=== PATIENT | female | born 1935 | race Caucasian/White ===

== ENCOUNTER → 2023-12-17 08:17 | Outpatient (REF) | payer MEDICARE, SELFPAY ==
[2023-12-17 09:02] LABS: % Basophils 0.2 % (0-2); % Eosinophils 7.8 % (0-6); % Immature Granulocytes 0.7 % (0-0.5); % Lymphocytes 31.3 % (20.5-51.1); % Monocytes 7.1 % (1.7-9.3); % Neutrophils 52.9 % (42.2-75.2); Absolute Eosinophils 0.5 10^3/uL (0-0.7); Absolute Lymphocytes 1.9 10^3/uL (1.2-3.4); Absolute Monocytes 0.4 10^3/uL (0.1-0.6); Absolute Neutrophils 3.2 10^3/uL (1.4-6.5); Hematocrit 30.7 % (37.0-47.0); Hemoglobin 10.7 g/dL (12.0-16.0); Mean Corp Hgb Conc. 34.9 g/dL (33.0-37.0); Mean Corpuscular Hgb 31.5 pg (27.0-31.0); Mean Corpuscular Volume 90.3 fL (81.0-99.0); Mean Platelet Volume 9.7 fL (7.4-10.4); Nucleated Red Blood Cells % 0 %; Platelet Count 220 10^3/uL (130-400); Red Cell Dist. Width 15.3 % (11.5-14.5)
[2023-12-17 09:48] LABS: ALT (SGPT) 17 U/L (0-35); AST (SGOT) 22 U/L (14-36); Alkaline Phosphatase 75 U/L (38-126); Blood Urea Nitrogen 24 mg/dl (7-17); Calcium 9.2 mg/dl (8.4-10.2); Carbon Dioxide 23 mmol/L (22-30); Chloride 101 mmol/L (98-107); Glucose 106 mg/dl (70-99); HDL Cholesterol 60 mg/dl; LDL Cholesterol, Calculated 94 mg/dl; Potassium 4.7 mmol/L (3.5-5.1); Sodium 132 mmol/L (135-145); Total Bilirubin 0.5 mg/dl (0.2-1.3); Total Cholesterol 169 mg/dl (50-199); Total Protein 6.7 g/dl (6.3-8.2); Triglyceride 76 mg/dl (10-149); Very Low Density Lipoprotein 15 mg/dl (0-30); eGFR 53.85
[2023-12-17 10:01] LABS: Vitamin D, 25-OH*** 30.5 ng/mL (30-80)
[2023-12-17 12:23] LABS: Glycohemoglobin (HgbA1c) 5.6 % (4.0-5.6)
== END ==
LOC: REG 08:17
PROVIDERS: ATTENDING PHYSICIAN Internal Medicine
DX: I10 Essential (primary) hypertension (principal); E78.5 Hyperlipidemia, unspecified; R73.03 Prediabetes; E55.9 Vitamin D deficiency, unspecified
CPT/HCPCS: 36415; 80053; 80061; 82306; 83036; 85025

== ENCOUNTER → 2024-01-24 08:21 | Outpatient (REF) | payer MEDICARE, SELFPAY ==
[2024-01-24 09:07] LABS: % Basophils 0.3 % (0-2); % Eosinophils 4.8 % (0-6); % Immature Granulocytes 0.9 % (0-0.5); % Lymphocytes 39.8 % (20.5-51.1); % Monocytes 11.1 % (1.7-9.3); % Neutrophils 43.1 % (42.2-75.2); Absolute Eosinophils 0.3 10^3/uL (0-0.7); Absolute Immature Granulocytes 0.1 10^3/uL (0-0.05); Absolute Lymphocytes 2.3 10^3/uL (1.2-3.4); Absolute Monocytes 0.7 10^3/uL (0.1-0.6); Absolute Neutrophils 2.5 10^3/uL (1.4-6.5); Hematocrit 33.1 % (37.0-47.0); Hemoglobin 11.9 g/dL (12.0-16.0); Mean Corpuscular Hgb 32.2 pg (27.0-31.0); Mean Corpuscular Volume 89.5 fL (81.0-99.0); Mean Platelet Volume 9.7 fL (7.4-10.4); Nucleated Red Blood Cells % 0 %; Platelet Count 214 10^3/uL (130-400); Red Cell Dist. Width 15.1 % (11.5-14.5); White Blood Cell Count 5.9 10^3/uL (4.8-10.8)
[2024-01-24 09:47] LABS: Iron 69 ug/dl (37-170)
[2024-01-24 09:56] LABS: Percent Saturation 26 % (20-50); Total Iron Binding Capacity 264 ug/dl (265-497)
[2024-01-24 10:53] LABS: Folate 13.1 ng/ml (2.76-20); Vitamin B12 325 pg/ml (239-931)
== END ==
LOC: REG 08:21
PROVIDERS: ATTENDING PHYSICIAN Internal Medicine
DX: D64.9 Anemia, unspecified (principal)
CPT/HCPCS: 36415; 82607; 82728; 82746; 83540; 83550; 85025

== ENCOUNTER 2024-05-01 13:45 | Emergency (ER) | payer MEDICARE, SELFPAY ==
[2024-05-01] VITALS (19 sets, daily range): BP systolic 104–154; BP diastolic 56–91; BMI 28.5
[2024-05-01 14:19] LABS: % Basophils 0.3 % (0-2); % Eosinophils 3.4 % (0-6); % Immature Granulocytes 0.7 % (0-0.5); % Lymphocytes 31.7 % (20.5-51.1); % Monocytes 6.6 % (1.7-9.3); % Neutrophils 57.3 % (42.2-75.2); Absolute Eosinophils 0.3 10^3/uL (0-0.7); Absolute Immature Granulocytes 0.1 10^3/uL (0-0.05); Absolute Lymphocytes 2.4 10^3/uL (1.2-3.4); Absolute Monocytes 0.5 10^3/uL (0.1-0.6); Absolute Neutrophils 4.3 10^3/uL (1.4-6.5); Hematocrit 34.8 % (37.0-47.0); Hemoglobin 12.5 g/dL (12.0-16.0); Mean Corp Hgb Conc. 35.9 g/dL (33.0-37.0); Mean Corpuscular Hgb 32.5 pg (27.0-31.0); Mean Corpuscular Volume 90.4 fL (81.0-99.0); Nucleated Red Blood Cells % 0 %; Platelet Count 205 10^3/uL (130-400); Red Blood Cell Count 3.85 10^6/uL (4.20-5.40); Red Cell Dist. Width 15.9 % (11.5-14.5); White Blood Cell Count 7.6 10^3/uL (4.8-10.8)
[2024-05-01 14:35] LABS: APTT 32.2 Sec (23.4-35.0)
[2024-05-01 14:37] LABS: ALT (SGPT) 17 U/L (0-35); AST (SGOT) 24 U/L (14-36); Albumin 4.3 g/dl (3.5-5.0); Alkaline Phosphatase 72 U/L (38-126); Blood Urea Nitrogen 30 mg/dl (7-17); Calcium 9.5 mg/dl (8.4-10.2); Carbon Dioxide 20 mmol/L (22-30); Chloride 102 mmol/L (98-107); Glucose 165 mg/dl (70-99); Potassium 4.3 mmol/L (3.5-5.1); Sodium 133 mmol/L (135-145); Total Bilirubin 0.6 mg/dl (0.2-1.3); Total Protein 6.8 g/dl (6.3-8.2); eGFR 48.03
--- NOTE | 2024-05-01 16:18 | ED.GENMED ---
History of Present Illness
<Josie Damon NP - Last Filed: 05/01/24 23:30>
General
Chief Complaint: Abnormal Lab Value
Source: patient
Exam Limitations: none
Time Seen by Provider: 05/01/24 15:34
Nursing documentation reviewed up to this point in time: agreed with
History of Present Illness
History of Present Illness:
Patient to ED with complaint of rapid heartrate. States she was exercising on wednesday when she noticed HR elevation. Denies any CP/pressure. Report [place]. Called Dr. Segovia this AM and was advised to come to ED. Brought to ED by son for eval. PMH
afib - reports cardioversion by Dr. Segovia 1 year ago. On eliquis. Reports compliance with medications.
Past History
<Josie Damon NP - Last Filed: 05/01/24 23:30>
Past History
ED Past Medical History: Cancer (Breast CA), GERD, HTN and Other (Neuropathy)
ED Past Surgical History: Other (Breast lumpectomy Left)
Social History
Tobacco: Non-smoker
Alcohol: None
Drug: None
Personal:
Living: with family
Review of Systems
<Josie Damon NP - Last Filed: 05/01/24 23:30>
Review of Systems
Allergies reviewed?: Yes
All Other Systems: ROS reviewed and negative except as documented in HPI and ROS
Constitutional: Reports no symptoms
EENT: Reports no symptoms
Respiratory: Reports other (PARIS)
Cardiac: Reports other (rapid heart rate)
ABD/GI: Reports no symptoms
Musculoskeletal: Reports no symptoms
Skin: Reports no symptoms
Neurological: Reports no symptoms
Psychiatric: Reports no symptoms
Phy Exam
<Josie Damon NP - Last Filed: 05/01/24 23:30>
General Physical Exam
General Presentation: well appearing and mild distress
General age: appears stated age
General Skin: warm and dry
General Habitus: normal
General Mental: alert
Cardiovascular Exam
Cardiovascular Exam: no edema and tachycardia
Pulmonary Exam
Pulmonary Exam: lungs clear and no respiratory distress
Gastrointestinal Exam
Gastrointestinal Exam: normal bowel sounds and non tender
Musculoskeletal Exam
Musculoskeletal Exam: full ROM and neuro vasc intact
Skin Exam
Skin Exam: normal color, warm/dry and no rash
Psychiatric Exam
Psychiatric Exam: normal mood/affect
Course
<Josie Damon NP - Last Filed: 05/01/24 23:30>
Orders/Labs/Results
Orders:
Orders
05/01/24 13:51
Electrocardiogram (*1) Urgent
Reason for Study: Tachycardia
EKG- Treatment ONCE
05/01/24 13:58
Complete Blood Count/With Diff Urgent
Comprehensive Metabolic Panel Urgent
PTT Urgent
05/01/24 15:43
Cardiac Monitoring- Treatment ONCE
05/01/24 16:34
D-Dimer Urgent
05/01/24 16:42
Propofol [Diprivan] 20 ml .ROUTE .STK-MED
05/01/24 17:58
ASA Classification Routine
Propofol [Diprivan] 60 mg IV NOW STA
05/01/24 18:38
Electrocardiogram (*1) Urgent
Reason for Study: Chest Pain
EKG- Treatment ONCE
Abnormal Lab Results
05/01/24
13:58
RBC 3.85 L 10^6/uL
(4.20-5.40)
Hct 34.8 L %
(37.0-47.0)
MCH 32.5 H pg
(27.0-31.0)
RDW 15.9 H %
(11.5-14.5)
Abs Immat Gran (auto) 0.1 H 10^3/uL
(0-0.05)
Immature Gran % 0.7 H %
(0-0.5)
Sodium 133 L mmol/L
(135-145)
Carbon Dioxide 20 L mmol/L
(22-30)
BUN 30 H mg/dl
(7-17)
Creatinine 1.1 H mg/dL
(0.6-1.0)
Glucose 165 H mg/dl
(70-99)
05/01/24 13:58
05/01/24 13:58
Vital Signs
Initial and Last Documented VS:
Initial Vital Signs
Temp Pulse Resp BP Pulse Ox
98.1 F 124 18 132/85 97
05/01/24 13:49 05/01/24 13:49 05/01/24 13:49 05/01/24 13:49 05/01/24 13:49
Last Documented Vital Signs
Temp Pulse Resp BP Pulse Ox
97.7 F 84 26 108/65 96
05/01/24 18:44 05/01/24 20:15 05/01/24 20:15 05/01/24 20:10 05/01/24 20:10
<Albert Marley, DO - Last Filed: 05/01/24 18:49>
Orders/Labs/Results
Orders:
Orders
05/01/24 13:51
Electrocardiogram (*1) Urgent
Reason for Study: Tachycardia
EKG- Treatment ONCE
05/01/24 13:58
Complete Blood Count/With Diff Urgent
Comprehensive Metabolic Panel Urgent
PTT Urgent
05/01/24 15:43
Cardiac Monitoring- Treatment ONCE
05/01/24 16:34
D-Dimer Urgent
05/01/24 16:42
Propofol [Diprivan] 20 ml .ROUTE .STK-MED
05/01/24 17:58
ASA Classification Routine
Propofol [Diprivan] 60 mg IV NOW STA
05/01/24 18:38
Electrocardiogram (*1) Urgent
Reason for Study: Chest Pain
EKG- Treatment ONCE
Abnormal Lab Results
05/01/24
13:58
RBC 3.85 L 10^6/uL
(4.20-5.40)
Hct 34.8 L %
(37.0-47.0)
MCH 32.5 H pg
(27.0-31.0)
RDW 15.9 H %
(11.5-14.5)
Abs Immat Gran (auto) 0.1 H 10^3/uL
(0-0.05)
Immature Gran % 0.7 H %
(0-0.5)
Sodium 133 L mmol/L
(135-145)
Carbon Dioxide 20 L mmol/L
(22-30)
BUN 30 H mg/dl
(7-17)
Creatinine 1.1 H mg/dL
(0.6-1.0)
Glucose 165 H mg/dl
(70-99)
05/01/24 13:58
05/01/24 13:58
Vital Signs
Initial and Last Documented VS:
Initial Vital Signs
Temp Pulse Resp BP Pulse Ox
98.1 F 124 18 132/85 97
05/01/24 13:49 05/01/24 13:49 05/01/24 13:49 05/01/24 13:49 05/01/24 13:49
Last Documented Vital Signs
Temp Pulse Resp BP Pulse Ox
97.7 F 84 26 108/65 96
05/01/24 18:44 05/01/24 20:15 05/01/24 20:15 05/01/24 20:10 05/01/24 20:10
Procedures
<Albert Marley DO - Last Filed: 05/01/24 18:49>
Moderate Sedation
ASA Risk Score: Class II
Chart and allergies reviewed: Yes
Consent for anesthesia obtained: Yes
Time out completed (validating right patient & procedure): Yes
Moderate Sedation Start Time(when first medication is given): 18:31
History of difficult intubation: No
Airway free of obstruction: Yes
Patient has a gag reflex: Yes
Patient is able to open mouth: Yes
Patient has no dentures: Yes
Patient has no loose teeth: Yes
Medication administered by Provider during Moderate Sedation: IV Propofol (mg)
Total dose administered: 70
Time drug administered: 18:31
Moderate Sedation Procedure End Time: 18:41
Cardioversion
Indication:: Other ( atrial tachycardia)
Performed by:: Dr. Marley
Synchronized?: Yes
Energy Used: 150 joules
Number of attempts: 1
Successful?: Yes
ASA Risk Score: Class II
Any reaction or bad outcome to prior sedation/anesthesia?: No history of a reaction
Sedation level to be attained: moderate
Chart and allergies reviewed: Yes
Patient reassessed prior to sedation: Yes
Time out completed at (validating right patient & procedure): 18:30
History of difficult intubation: No
Airway free of obstruction: Yes
Patient has a gag reflex: Yes
Patient is able to open mouth: Yes
Patient has no dentures: Yes
Patient has no loose teeth: Yes
Medication administered by Provider during Moderate Sedation: IV Propofol (mg)
Total dose administered: 70
Time drug administered: 18:31
Start Time: 18:31
Stop Time: 18:41
<Josie Damon OVEN DUMPER - Last Filed: 05/01/24 23:30>
*Pulse Oximetry
Patient hypoxic: no
*EKG
Rate: tachycardiac
Rhythm: sinus
*Critical Care Note
Total Time (30-74mins, 75-104mins- exclusive of procedures): Not Applicable
<Josie Damon OVEN DUMPER - Last Filed: 05/01/24 23:30>
Update Note
Update Note:
Case discussed with Dr. Choi. Recommends cardioversion, discharge home, followup with Dr. Segovia in office. Case discussed with dr. marley who also evaluated this patient. Cardioversion performed bedside by Dr. Marley. Patient tolerated
procedure well, return to [facility].
ED Attending Note
<Josie Damon NP - Last Filed: 05/01/24 23:30>
-
Portions of this chart may have been created with voice recognition software.� Occasional wrong word or��sound alike� substitutions may have occurred due to the inherent limitations of voice recognition software.
<Albert Marley, DO - Last Filed: 05/01/24 18:49>
ED Attending Note
Patient seen and examined by attending physician: Yes
I performed a history and physical exam of patient and discussed management with resident, I reviewed resident's note and agree with documented findings and plan of care.: Yes
ED Attending Note:
I have reviewed and agree with history and treatment plan by Josie Damon. My exam revealed 88-year-old female with tachycardia. Atrial tachycardia seen on EKG, cardioversion and sedation completed. Patient stable for discharge. Will
follow-up with Dr. NICOLA Segovia.
Discharge Plan
Departure
Patient Disposition: Home (Routine Discharge)
Date of Disposition: 05/01/24
Time of Disposition: 20:10
Patient with high blood pressure during this ER visit?: No
Condition: Good
Covid-19: Not Applicable
Discharge Problem:
Tachycardia
Instructions: Tachycardia, Cardioversion (DC), Moderate Sedation in Adults (DC)
Prescriptions:
No Action
losartan 50 mg Tablet
50 mg PO DAILY Qty: 0 0RF
acetaminophen 325 mg Tablet
650 mg PO Q6HPRN PRN (Reason: mild pain) Qty: 0 0RF
doxazosin 4 mg Tablet
8 mg PO QPM Qty: 0 0RF
oxycodone 5 mg Tablet
2.5 mg PO Q4HPRN PRN (Reason: moderate pain) Qty: 0 0RF
atenolol 50 mg Tablet
100 mg PO HS Qty: 0 0RF
diltiazem HCl 180 mg Capsule,Extended Release 24hr
180 mg PO DAILY Qty: 30 0RF
Eliquis 5 mg tablet
5 mg PO BID Qty: 60 5RF
oxycodone 5 mg tablet
2.5 mg PO Q6H PRN (Reason: severe pain) Qty: 8 0RF
Referrals:
Suresh Dickens DO [Family Provider] -
Neil Segovia MD [Active] - Tomorrow
Interventions
Interventions:
*Risk Screen - Suicide Last Done: 05/01/24 13:49
*General Assessment Last Done: 05/01/24 13:49
*Neglect/Abuse Screening Last Done: 05/01/24 13:49
ED- Fall Risk Assessment Last Done: 05/01/24 16:23
*ED COVID-19 Vaccine History Last Done: 05/01/24 13:49
*Nursing Disposition Last Done: 05/01/24 20:31
Discharge Date and Time
Discharge Date/Time: 05/01/24 20:33
Print Language: AMHARIC
--- NOTE | 2024-05-01 17:33 | EDRN ---
Pt OOB to BR using cane at this time.
[2024-05-01 17:46] LABS: D-Dimer 0.44 ug/mlFEU (0.00-0.50)
--- NOTE | 2024-05-01 17:54 | EDRN ---
Pt is awaiting cardioversion at this time.
--- NOTE | 2024-05-01 18:50 | EDRN ---
Report received at bedside, patient it still recovering from moderate sedation, she is awake and talking just sleepy, patients son will be coming back to pick her up and take her home.
--- NOTE | 2024-05-01 20:08 | EDRN ---
Patient is nice and awake, son at bedside with her, informed Josie, [employer] DISPATCHER patient is ok to go home.
== END 2024-05-01 20:33 | disposition home or self-care (01) ==
LOC: EMR 13:45
PROVIDERS: Emergency Medicine; Nurse Practitioner; EMERGENCY PHYSICIAN Emergency Medicine; FAMILY PHYSICIAN Family Medicine
DX: R00.0 Tachycardia, unspecified (principal); R06.09 Other forms of dyspnea; I10 Essential (primary) hypertension; K21.9 Gastro-esophageal reflux disease without esophagitis; G62.9 Polyneuropathy, unspecified; Z85.3 Personal history of malignant neoplasm of breast; Z79.01 Long term (current) use of anticoagulants
CPT/HCPCS: 92960; 99285; 99152; 80053; 85025; 85379; 85730; 93005

== ENCOUNTER → 2024-05-12 17:32 | Outpatient (REF) | payer MEDICARE, SELFPAY ==
[2024-05-12 19:34] LABS: Urine Albumin Negative (Neg - Trace); Urine Bilirubin Negative (Negative); Urine Character Very Cloudy (Clear); Urine Color Yellow; Urine Glucose Negative (Negative); Urine Ketone Negative (Negative); Urine Leukocyte Trace (Negative); Urine Nitrite Positive (Negative); Urine Occult Blood Negative (Negative); Urine Urobilinogen Negative (Neg - 1+); Urine pH 6.5 (5.0-9.0)
[2024-05-12 19:43] LABS: Urine Squamous Cell >30 /LPF (Few)
[2024-05-12 19:46] LABS: Urine Bacteria Many (Negative)
== END ==
LOC: CLAB 17:32
PROVIDERS: ATTENDING PHYSICIAN Family Medicine
DX: R35.0 Frequency of micturition (principal)
CPT/HCPCS: 81003; 81015; 87077; 87086; 87186